=== PATIENT | female | born 1970 | race African-American/Black ===

== ENCOUNTER 2018-05-31 19:03 | Emergency (ER) | payer OTHER ==
[~2018-05-31] VITALS: Ht 170.2 cm; Wt 165.0 kg
[~2018-05-31 19:03] MED LIST: ALBU8.5H8 INH; CYCL10TA7 PO; HYDR-4011 PO; IBUP800T48; NAPR-985 PO; PRED20TA PO; VIC
[2018-05-31 19:07] VITALS: Ht 170.2 cm; Wt 165.0 kg
[2018-05-31] MEDS ORDERED: METHYLPREDNISOLONE 125 MG INJ IV STA (19:21)
[2018-05-31] MEDS ORDERED: ALBUTEROL 0.5% (NEB) 2.5 MG/0.5 ML AMP INH STA ×2 (19:21→21:34)
[2018-05-31] MEDS ORDERED: TERBUTALINE 1 MG/ML INJ SC STA (19:21)
--- NOTE | 2018-05-31 19:40 | ERD ---
ER Documentation Chief Complaint Chief Complaint C/O SOB X1 HR, WHEEZES NOTED, HOME ALBUTAROL NOT WORKING, HX OF ASTHMA HPI This is a 48-year-old here for asthma. The patient has a history of asthma with frequent exacerbations. The patient says she was here last week and had an asthma exacerbation that required some albuterol inhaler and steroids. She says she does not have a machine at home and when she takes her inhaler it seems to have a paradoxical effect and makes her more short of breath. The patient states that she is having some wheezing today but not going away with her inhaler. No chest pain or fever no productive cough ROS All systems reviewed and are negative except as per history of present illness. Medications Home Meds Active Scripts Albuterol Sulfate* (Proair HFA*) 8.5 Gm Hfa.aer.ad, 2 PUFF INH Q4, #1 INHALER Prov:LUCAS AWYNE DO 05/31/18 Prednisone* (Prednisone*) 20 Mg Tab, 60 MG PO DAILY for 4 Days, TAB Prov:LUCAS WAYNE DO 05/31/18 Albuterol Sulfate* (Proair HFA*) 8.5 Gm Hfa.aer.ad, 2 PUFF INH Q6H PRN for WHEEZING AND SOB, #1 INHALER Prov:OUMAR DAS MD 05/21/18 Naproxen* (Naprosyn*) 500 Mg Tablet, 500 MG PO BID PRN for PAIN AND/OR INFLAMMATION, #30 TAB Prov:BRENDA RAI PA-C 12/03/15 Hydrocodone/Acetaminophen ([place] 5-325 Tablet) 1 Each Tablet, 1 TAB PO Q6H PRN for PAIN, #7 TAB Prov:BRENDA RAI PA-C 12/03/15 Cyclobenzaprine Hcl* (Cyclobenzaprine Hcl*) 10 Mg Tablet, 10 MG PO TID, #15 TAB Prov:BRENDA RAI PA-C 12/03/15 Reported Medications Cholecalciferol* (Vitamin D3*) 1,000 Unit Tablet, 2000 UNIT PO DAILY, TAB 05/31/18 Metformin* (Glucophage*) 500 Mg Tab, 500 MG PO WITH BREAKFAST DINNE, #30 TAB 05/31/18 Lisinopril* (Lisinopril*) 20 Mg Tablet, 20 MG PO DAILY, #30 TAB 05/31/18 Ibuprofen* (Motrin*) 800 Mg Tab 10/14/10 Discontinued Reported Medications Acetaminophen/Hydrocodone (Vicodin) 1 Tab Tab 10/14/10 Discontinued Scripts Prednisone* (Prednisone*) 20 Mg Tab, 40 MG PO DAILY for 4 Days, TAB Prov:OUMAR DAS MD 05/21/18 Allergies Allergies: Coded Allergies: No Known Allergies (Unverified Allergy, Mild, 05/31/18) PMhx/Soc History of Surgery: Yes (LEFT KNEE FRACTURE REPAIR) Anesthesia Reaction: No Hx Neurological Disorder: Yes Hx Respiratory Disorders: Yes (ASTHMA) Hx Cardiac Disorders: No Hx Psychiatric Problems: No Hx Miscellaneous Medical Probl: Yes (morbid obesity,lumbar radiculopathy,herniated disk) Hx Alcohol Use: No Hx Substance Use: Yes (MARIJUANA) Hx Tobacco Use: Yes (QUIT 10 YEARS AGO) Smoking Status: Former smoker FmHx Family History: No coronary disease Physical Exam Vitals Vital Signs Date Temp Pulse Resp B/P (MAP) Pulse Ox O2 O2 Flow FiO2 Time Delivery Rate 05/31/18 85 98 21 21:45 05/31/18 96 28 97 Nasal 2.0 19:32 Cannula 05/31/18 Nasal 3 19:22 Cannula 05/31/18 Nasal 3.0 19:18 Cannula 05/31/18 97.2 106 26 188/89 86 Room Air 19:14 (122) 05/31/18 97.2 117 25 194/93 86 19:07 (126) Physical Exam Const: Well-developed, well-nourished Head: Atraumatic, normocephalic Eyes: Normal Conjunctiva, PERRLA, EOMI, normal sclera, no nystagmus ENT: Normal External Ears, Nose and Mouth, moist mucus membranes. Neck: Full range of motion. No meningismus, no lymphadenopathy. Resp: [No increased work of breathing or respiratory distress, diffuse end expiratory wheezes there is air movement Cardio: Regular rate and rhythm, no murmurs, S1 S2 present Abd: Soft, non tender x 4, non distended. Normal bowel sounds, no guarding or rebound, no pulsitile abdominal masses or bruits Skin: No petechiae or rashes, no ecchymosis , no maculopapular rash Back: No midline or flank tenderness Ext: No cyanosis, or edema, FROM x 4, normal inspection, neurovascularly intact x 4 Neur: Awake and alert, STR 5/5 x 4, sensation intact x 4, no focal findings, cerebellum intact Psych: Normal Mood and Affect Results 24 hrs Current Medications Medications Dose Sig/Vargas Start Time Status Last (Trade) Ordered Route PRN Stop Time Admin Dose Reason Admin Albuterol 10 mg ONCE STAT 05/31/18 DC 05/31/18 (Proventil INH 19:21 19:32 0.5% (Neb)) 05/31/18 19:22 125 mg ONCE STAT 05/31/18 DC 05/31/18 Methylprednis IV 19:21 19:27 olone Sodium 05/31/18 19:22 Succinate (Solu-Medrol) Terbutaline 0.25 mg ONCE STAT 05/31/18 DC 05/31/18 Sulfate SC 19:21 19:27 (Brethine) 05/31/18 19:22 Albuterol 10 mg ONCE STAT 05/31/18 DC 05/31/18 (Proventil INH 21:34 21:45 0.5% (Neb)) 05/31/18 21:35 Magnesium 50 ml @ 25 ONCE STAT 05/31/18 Sulfate mls/hr IVPB 21:34 05/31/18 23:33 Terbutaline 0.25 mg ONCE STAT 05/31/18 DC Sulfate SC 21:34 (Brethine) 05/31/18 21:35 Procedures/MDM Patient received 10 mg of albuterol continuous x2 followed by Solu-Medrol IV. Patient had some rest time in between. At 10:45 PM the patient states that she feels better. She says she is moving better air. Her room air sats are 98%. She does have some slight expiratory wheezes bilaterally but she said that she is wheezes 24/7 and this is normal for Departure Diagnosis: Primary Impression: Asthma with acute exacerbation Asthma severity: unspecified severity Asthma persistence: unspecified Qualified Codes: J45.901 - Unspecified asthma with (acute) exacerbation Condition: LUCAS Gomez DO May 31, 2018 19:40
[2018-05-31] MEDS: MAGNESIUM SULFATE 2 GM/50 ML 50 ML IVPB STA ×2 (21:34→22:44)
[2018-05-31] MEDS: TERBUTALINE 1 MG/ML INJ SC STA ×2 (21:34→22:44)
[2018-05-31] MEDS ORDERED: METF-849 PO (22:08)
[2018-05-31] MEDS ORDERED: CHOL100062 PO (22:08)
[2018-05-31] MEDS ORDERED: LISI-471 PO (22:08)
[2018-05-31] MEDS ORDERED: ALBU8.5H8 INH (22:46)
[2018-05-31] MEDS ORDERED: PRED20TA PO (22:46)
[2018-05-31 22:47] VITALS: BP 136/64; PULSE 100; RESP 20
== END 2018-05-31 22:51 | disposition home or self-care (01) ==
LOC: E/R 19:03
DX: J45.901 Unspecified asthma with (acute) exacerbation (principal); E66.01 Morbid (severe) obesity due to excess calories; Z68.43 Body mass index [BMI] 50.0-59.9, adult; Z79.84 Long term (current) use of oral hypoglycemic drugs; Z87.891 Personal history of nicotine dependence
CPT/HCPCS: 94644; 94645; 96372; 96374; J2930; J3105; J3475; Z7502; Z7610

== ENCOUNTER 2019-02-15 00:18 | Emergency (ER) | payer OTHER ==
[~2019-02-15] VITALS: Ht 167.6 cm; Wt 165.0 kg
[~2019-02-15 00:18] MED LIST changes: +ACET500C5 PO; +ALBU18HF INHALATION; +AZIT250T PO; +CHOL100062 PO; +D-ME473S2 PO; +LISI-471 PO; +MED4DP PO; +METF-849 PO; -VIC
[2019-02-15 00:21] VITALS: Ht 167.6 cm; Wt 165.0 kg
[2019-02-15] MEDS ORDERED: predniSONE 20 MG TAB PO STA (02:09)
[2019-02-15] MEDS ORDERED: ALBUTEROL 0.5% (NEB) 2.5 MG/0.5 ML AMP INH STA (02:09)
[2019-02-15] MEDS ORDERED: IPRATROPIUM (NEB) 0.5 MG/2.5 ML AMP INH STA (02:09)
[2019-02-15 03:21] VITALS: BP 169/95; PULSE 88; RESP 18
== END 2019-02-15 03:23 | disposition home or self-care (01) ==
LOC: FTE 00:18
DX: J45.901 Unspecified asthma with (acute) exacerbation (principal); E66.01 Morbid (severe) obesity due to excess calories; Z87.891 Personal history of nicotine dependence; Z79.84 Long term (current) use of oral hypoglycemic drugs; Z68.43 Body mass index [BMI] 50.0-59.9, adult
CPT/HCPCS: 94644; J7512; Z7502; Z7610